=== PATIENT | female | born 1960 | race American Indian/Alaskan Native ===

== ENCOUNTER 2017-03-05 10:07 | Outpatient (CLI) | payer OTHER ==
--- NOTE | 2017-03-05 12:24 | Mammography Report ---
Right mammogram and right breast ultrasound: Additional imaging of the right breast asymmetry in the superior breast is performed based on prior dictation in October 2016. A spot compression image again demonstrates a small irregular density which is unchanged unchanged findings however a straight lateral projection does not clearly demonstrate this finding. It is of note that the finding is adjacent to prior surgical site. This finding is not noted on the CC projection of the prior study. Ultrasound of the superior breast demonstrates a round 3 mm hypoechoic and sharply defined lesion. There may be slight enhancement of the posterior wall. No architectural distortion or other findings are identified. Impression: Right asymmetry appears stable but not consistently identified on multiple projections. It's unclear whether the ultrasound finding is the same. The ultrasound may represent a cyst. Recommendation: Ultrasound guided aspiration of the probable cyst. Biopsy if it is solid. Repeat mammogram to identify whether this is the same finding. BI-RADS CATEGORY: 4 = Suspicious ACR BI-RADS MAMMOGRAPHIC CODES: 0 = Needs additional imaging evaluation; 1 = Negative; 2 = Benign; 3 = Probably benign; 4 = Suspicious; 5 = Malignant; 6 = Known biopsy-proven malignancy COMMENT: 1. Dense breast tissue, i.e., adenosis, fibrocystic changes, etc., may obscure an underlying neoplasm. 2. Approximately 10% of cancers are not detected with mammography. 3. A negative mammography report should not delay biopsy if a clinically suspicious mass is present.
== END 2017-03-05 10:08 | disposition home or self-care (01) ==
LOC: MAMMO 10:07
DX: N63 Unspecified lump in breast (principal)
CPT/HCPCS: 76642; G0206

== ENCOUNTER 2017-03-16 09:39 | Outpatient (CLI) | payer OTHER ==
--- NOTE | 2017-03-16 11:13 | Ultrasound Report ---
RIGHT BREAST ULTRASOUND: 03/16/17 09:39:00 CLINICAL: The patient return for ultrasound biopsy of a 3 mm mass at 9 o'clock 4 cm from the nipple. This did not correlate well with the mammographic asymmetry identified screening 11/06/16. However, no other finding was identified by ultrasound. COMPARISON: 03/05/17 FINDINGS: Ultrasound of the right breast was performed and fail to demonstrate the previously described lesion. The biopsy procedure was canceled. IMPRESSION: Negative right breast ultrasound and probably benign right mammographic asymmetry. Recommend six month followup right mammogram and right breast ultrasound. BI-RADS 3 - - Probably Benign
== END 2017-03-16 09:40 | disposition home or self-care (01) ==
LOC: SPVWC 09:39
PROVIDERS: ATTEND Family Medicine
DX: N63 Unspecified lump in breast (principal)

== ENCOUNTER 2017-08-27 12:23 | Outpatient (CLI) | payer OTHER ==
--- NOTE | 2017-08-27 13:47 | Mammography Report ---
Bilateral diagnostic mammogram: Compared to previous mammogram dated 03/05/17 and 11/06/16 and previous sonograms. History: Patient does not have any evidence of pain or palpable mass lesion. Findings: Predominance of adipose tissue bilaterally. No mass or microcalcification. Normal axilla. Impression: Benign findings. Annual follow up mammogram recommended. BI-RADS CATEGORY: 2 = Benign ACR BI-RADS MAMMOGRAPHIC CODES: 0 = Needs additional imaging evaluation; 1 = Negative; 2 = Benign; 3 = Probably benign; 4 = Suspicious; 5 = Malignant; 6 = Known biopsy-proven malignancy COMMENT: 1. Dense breast tissue, i.e., adenosis, fibrocystic changes, etc., may obscure an underlying neoplasm. 2. Approximately 10% of cancers are not detected with mammography. 3. A negative mammography report should not delay biopsy if a clinically suspicious mass is present. COMMENT: Patient follow-up letters are generated in [employer].
== END 2017-08-27 12:24 | disposition home or self-care (01) ==
LOC: MAMMO 12:23
PROVIDERS: ATTEND Family Medicine
DX: N63 Unspecified lump in breast (principal); Z80.3 Family history of malignant neoplasm of breast
CPT/HCPCS: 77066; G0204